=== PATIENT | female | born 2000 | race Asian ===

== ENCOUNTER 2025-01-26 04:48 | Emergency (ER) | payer MEDICAID, OTHER ==
[~2025-01-26] VITALS: Ht 160 cm; Wt 88.5 kg
[2025-01-26] MEDS ORDERED: FAMOTIDINE/PF INJ 20 MG/2 ML VIAL IV ONE (05:43)
[2025-01-26] MEDS ORDERED: ONDANSETRON HCL/PF 4 MG/2 ML VIAL ONE (05:43)
[2025-01-26] MEDS: FAMOTIDINE/PF INJ 20 MG/2 ML VIAL IV ONE (06:00)
[2025-01-26] MEDS: IV NS 0.9% 1,000 ML BAG IV ONE (06:00)
[2025-01-26] MEDS: ONDANSETRON HCL/PF 4 MG/2 ML VIAL IVP ONE (06:01)
[2025-01-26 06:04] LABS: BASOPHILS % (AUTO) 0.3 % (0.0-2.0); EOSINOPHILS # (AUTO) 0.1 K/uL (0.0-0.7); EOSINOPHILS % (AUTO) 0.7 % (0.0-6.0); HEMATOCRIT 40 % (33-45); HEMOGLOBIN 13.2 g/dL (11.5-14.8); LYMPHOCYTES # (AUTO) 1.3 K/uL (0.8-4.8); LYMPHOCYTES % (AUTO) 10.1 % (20.0-44.0); MEAN CORPUSCULAR HEMOGLOBIN 28 PG (26.0-33.0); MEAN CORPUSCULAR HGB CONC 33 g/dl (31.0-36.0); MEAN CORPUSCULAR VOLUME 85 fL (82-100); MONOCYTES # (AUTO) 0.5 K/uL (0.1-1.30); MONOCYTES % (AUTO) 3.7 % (2.0-12.0); NEUTROPHILS # (AUTO) 10.8 K/uL (1.8-8.9); NEUTROPHILS % (AUTO) 85.2 % (43.0-81.0); PLATELET COUNT (AUTO) 369 K/uL (150-450); RED BLOOD CELL COUNT(AUTO) 4.77 MIL/uL (4.0-5.2); RED CELL DISTRIBUTION WIDTH 14.4 % (11.5-15.0); WHITE BLOOD COUNT (AUTO) 12.7 K/uL (4.3-11.0)
[2025-01-26 06:18] LABS: BILIRUBIN,DIRECT 0.1 mg/dL (0.0-0.2); BILIRUBIN,TOTAL 0.4 mg/dL (0.2-1.0); CALCIUM, SERUM 9.3 mg/dL (8.5-10.1); POTASSIUM 3.9 mmol/L (3.5-5.1); TOTAL PROTEIN, SERUM 8.8 g/dL (6.4-8.2)
[2025-01-26] MEDS ORDERED: METOCLOPRAMIDE HCL 10 MG/2 ML VIAL ONE (06:35)
[2025-01-26] MEDS ORDERED: PANTOPRAZOLE 40 MG VIAL ONE (06:35)
[2025-01-26] MEDS ORDERED: KETOROLAC TROMETHAMINE 15 MG/ML VIAL ONE (06:35)
[2025-01-26] MEDS: PANTOPRAZOLE 40 MG VIAL IV ONE (06:47)
[2025-01-26] MEDS: METOCLOPRAMIDE HCL 10 MG/2 ML VIAL IV ONE (06:47)
[2025-01-26] MEDS: KETOROLAC TROMETHAMINE 15 MG/ML VIAL IV ONE (06:48)
[2025-01-26 07:00] LABS: PREGNANCY TEST URINE QUAL NEGATIVE (NEGATIVE)
[2025-01-26 07:04] LABS: APPEARANCE,URINE CLEAR (CLEAR); BILIRUBIN,URINE NEGATIVE (NEGATIVE); BLOOD, URINE NEGATIVE Ery/uL (NEGATIVE); COLOR,URINE YELLOW (YELLOW); KETONES,URINE NEGATIVE (NEGATIVE); LEUKOCYTE ESTERASE ,URINE NEGATIVE (NEGATIVE); NITRITE, URINE NEGATIVE (NEGATIVE); PH,URINE 6.5 (5.0-8.0); PROTEIN,URINE NEGATIVE (NEGATIVE); UGLUCOSE NEGATIVE (NEGATIVE); UROBILINOGEN,URINE 0.2 EU/dL (0.2)
[2025-01-26] MEDS ORDERED: FAMO-131 PO (07:19)
[2025-01-26] MEDS ORDERED: ONDA4TAB11 PO (07:19)
[2025-01-26] MEDS ORDERED: PANT40TA2 PO (07:19)
[2025-01-26 07:25] VITALS: BP 122/81; TEMP 98.7; O2SAT 98
== END 2025-01-26 07:26 | disposition home or self-care (01) ==
LOC: ER 04:51
DX: R10.13 Epigastric pain (principal); R11.2 Nausea with vomiting, unspecified; Z60.2 Problems related to living alone
CPT/HCPCS: 99285; 96374; 96375; 76705; 96361; 85025; 80048; 87086; 83690; 80076; 84703; 81003; 36415; J1885; J1308; J2765; J2405; J7030; J2470